=== PATIENT | female | born 1980 | race African-American/Black ===

== ENCOUNTER 2021-08-06 17:23 | Emergency (ER) | payer MEDICAID, OTHER ==
[~2021-08-06] VITALS: Ht 170.2 cm; Wt 119.0 kg
--- NOTE | 2021-08-06 18:17 | PHYS DOC ---
Past History Past Medical History: Diabetes General Adult EDM: Chief Complaint: HYPERGLYCEMIA HPI: HPI: ".. I ve been urinating constantly the last couple days... Mom check my blood sugar... with my dad' s machine.. and it read to high to read... we rechecked.. and it was to still to high to read... I never been diabetic before...." " I dont feel well..." Patient is a 40 year old female who presents with above hx and complaint of glucose levels to high to read. Pt denies previous episodes of hyperglycemia or diabetes. No recent travel. No specific ill contacts. Did get COVID vaccination but did not get flu vaccination. Father does have a diabetes and hypertension. Patient denies any recent change in dietary intake, states she has been too nauseated. Patient is accompanied by her mother. Review of Systems: Review of Systems: Constitutional: Denies fever or chills. Complains of generalized malaise Eyes: Denies change in visual acuity HENT: Denies nasal congestion or sore throat Respiratory: Denies cough or shortness of breath Cardiovascular: Denies chest pain or edema GI: Denies abdominal pain, nausea, vomiting, bloody stools or diarrhea : Complains of persistent need to urinate Musculoskeletal: Denies back pain or joint pain Integument: Denies rash Neurologic: Denies headache, focal weakness or sensory changes Endocrine: Complains of polyuria Lymphatic: Denies swollen glands Psychiatric: Denies depression or anxiety Family History: Family History: Diabetes hypertension-father Current Medications: Current Meds: See nursing for home meds Allergies: Allergies: No known drug allergies Physical Exam: PE: Constitutional: Moderate acute distress, non-toxic appearance. [] HENT: Normocephalic, atraumatic, bilateral external ears normal, oropharynx dry, no oral exudates, nose normal. [] Eyes: PERRLA, EOMI, conjunctiva normal, no discharge. [] Neck: Normal range of motion, no tenderness, supple, no stridor. [] Cardiovascular: Tachycardia heart rate regular rhythm, no murmur [] Lungs & Thorax: Bilateral breath sounds equal apex auscultation [] Abdomen: Bowel sounds normal, soft, no tenderness, no masses, no pulsatile masses. Morbidly obese Skin: Warm, dry, no erythema, no rash. [] Back: No tenderness, no CVA tenderness. [] Extremities: No tenderness, no cyanosis, no clubbing, ROM intact, ankle edema. [] No obvious cording. Neurologic: Alert and oriented X 3, normal motor function, normal sensory function, no focal deficits noted. [] Psychologic: Affect anxious, judgement normal, mood normal. [] EKG: EKG: My interpretation EKG shows a sinus rhythm at 99 bpm. No acute morphology. [] Radiology/Procedures: Radiology/Procedures: [] Heart Score: C/O Chest Pain: N/A HEART Score for Chest Pain: HEART Score for Chest Pain Response (Comments) Value History Slighlty/Non-Suspicious 0 ECG Normal 0 Age < 45 0 Risk Factors 1 or 2 Risk Factors 1 Troponin < Normal Limit 0 Total 1 Risk Factors: Risk Factors: DM, Current or recent (<one month) smoker, HTN, HLP, family history of CAD, obesity. Risk Scores: Score 0 - 3: 2.5% MACE over next 6 weeks - Discharge Home Score 4 - 6: 20.3% MACE over next 6 weeks - Admit for Clinical Observation Score 7 - 10: 72.7% MACE over next 6 weeks - Early Invasive Strategies Course & Med Decision Making: Course & Med Decision Making Pertinent Labs and Imaging studies reviewed. (See chart for details) No current ICU beds currently at [facility]. Discussed presentation and testing and treatment plan with Dr. Kenny-admit to his service at [facility] 90 min. Impression: 1. Diabetes-new onset 2. Critical hyperglycemia- 1, 617 glucose 3. Acute renal failure- Bun 22/Creat. 2.1 4. Dehydration 5. Hyponatremia- 128 6. Critical Hyperkalemia 7 7. Elevated alk phos 127 8. Elevated CK 212 9. Morbid Obesity [] Dragon Disclaimer: Dragon Disclaimer: This electronic medical record was generated, in whole or in part, using a voice recognition dictation system. Departure Departure: Referrals: PCP,UNKNOWN (PCP) Dragon Disclaimer This chart was dictated in whole or in part using Voice Recognition software in a busy, high-work load, and often noisy Emergency Department environment. It may contain unintended and wholly unrecognized errors or omissions. NICO LANGFORD MD Aug 06, 2021 18:17
[2021-08-06] MEDS ORDERED: IV NORMAL SALINE 1,000ML 1,000 ML IV SCH (18:30)
[2021-08-06] MEDS ORDERED: ONDANSETRON PF 4 MG/2 ML VIAL. IVP ONE (18:30)
[2021-08-06] MEDS ORDERED: INSULIN REGULAR VIAL 100 UNIT in IV NORMAL SALINE 100ML 100 ML IV PRN (18:45)
[2021-08-06] MEDS ORDERED: INSULIN REGULAR 100 UNIT/ML 3ML VIAL. IV ONE (18:45)
[2021-08-06 18:58] LABS: BASO # 0.1 x10^3/uL (0.0-0.2); BASO % 1 % (0-3); EOS % 0 % (0-3); HEMATOCRIT 50.4 % (36.0-47.0); HEMOGLOBIN 15.6 g/dL (12.0-15.5); LYMPH # 0.5 x10^3/uL (1.0-4.8); LYMPH % 5 % (24-48); MEAN CORPUSCULAR HEMOGLOBIN 28 pg (25-35); MEAN CORPUSCULAR HGB CONC 31 g/dL (31-37); MEAN CORPUSCULAR VOLUME 90 fL (79-100); MONO # 0.4 x10^3/uL (0.0-1.1); MONO % 4 % (0-9); NEUT # 9.6 x10^3uL (1.8-7.7); NEUT % 91 % (31-73); PLATELET COUNT 228 x10^3/uL (140-400); RED BLOOD COUNT 5.62 x10^6/uL (3.50-5.40); RED CELL DISTRIBUTION WIDTH 13.8 % (11.5-14.5); WHITE BLOOD COUNT 10.6 x10^3/uL (4.0-11.0)
[2021-08-06 18:59] LABS: BARBITURATES NEG (NEG); BENZODIAZEPINES NEG (NEG); CANNABINOIDS NEG (NEG); COCAINE NEG (NEG); METHADONE NEG (NEG); OPIATES NEG (NEG); PHENCYCLIDINE NEG (NEG)
[2021-08-06 19:01] LABS: AMPHETAMINE/METHAMPHETAMINE NEG (NEG)
[2021-08-06 19:12] LABS: ALBUMIN 4.6 g/dL (3.4-5.0); CALCIUM 10.3 mg/dL (8.5-10.1); CREATININE 2.1 mg/dL (0.6-1.0); DIRECT BILIRUBIN 0.3 mg/dL (0.0-0.2); GFR 31.4; TOTAL BILIRUBIN 1.7 mg/dL (0.2-1.0); TOTAL PROTEIN 8.8 g/dL (6.4-8.2)
[2021-08-06 19:13] LABS: BACTERIA,URINE 0 /HPF (0-FEW); CLARITY,URINE CLEAR; COLOR,URINE STRAW; GLUCOSE,URINE >=1000 mg/dL (NEG); NITRITE,URINE NEG (NEG); RBC,URINE 0 /HPF (0-2); SQUAMOUS EPITHELIAL CELL,UR OCC /LPF; UROBILINOGEN,URINE 0.2 mg/dL (0.2 mg/dL); WBC,URINE 0 /HPF (0-4)
[2021-08-06] MEDS ORDERED: ALBUTEROL SULFATE 8GM INHALER. INH ONE (19:45)
[2021-08-06] MEDS ORDERED: SODIUM POLYSTYRENE SULFONATE 15 GM/60 ML ORAL.SUSP. PO ONE (19:45)
[2021-08-06] MEDS ORDERED: CALCIUM CHLORIDE 1,000 MG/10 ML DISP.SYRIN IV ONE (19:45)
[2021-08-06] MEDS ORDERED: SODIUM BICARB ADULT 8.4% 50 MEQ/50 ML DISP.SYRIN. IV ONE (19:45)
[2021-08-06 20:34] VITALS: BP 130/78
[2021-08-06 21:18] LABS: INFLUENZA A PATIENT NEGATIVE (NEGATIVE); INFLUENZA B PATIENT NEGATIVE (NEGATIVE)
--- NOTE | 2021-08-07 06:40 | EKG ---
[address] [address] Test Date: 2021-08-06 Test Time: 19:41:03 Pat Name: FRANKO GALINDO Department: Room: Gender: F Radio Producer: YANIRA : 1980 Requested By: NICO LANGFORD Order Number: [id number] Reading MD: Gume Marshall Measurements Intervals [place] Rate: 99 P: 22 [place]: 136 QRS: 31 QRSD: 80 T: 13 QT: 356 QTc: 462 Interpretive Statements SINUS RHYTHM NORMAL ECG RI6.02 No previous ECG available for comparison Electronically Signed On 08-09-2021 13:38:09 CDT by Gume Marshall
[2021-08-07 19:48] LABS: CHOLESTEROL/HDL RATIO 5.8
== END 2021-08-06 21:32 | disposition short-term general hospital (02) ==
LOC: ER 17:23
DX: N17.9 Acute kidney failure, unspecified (principal); E11.65 Type 2 diabetes mellitus with hyperglycemia; E86.0 Dehydration; E87.1 Hypo-osmolality and hyponatremia; E87.5 Hyperkalemia; R79.89 Other specified abnormal findings of blood chemistry; E66.01 Morbid (severe) obesity due to excess calories; Z20.822 Contact with and (suspected) exposure to COVID-19; Z68.41 Body mass index [BMI] 40.0-44.9, adult
CPT/HCPCS: 36415; 80048; 80061; 80076; 80307; 81001; 81025; 82550; 82803; 83690; 84484; 85025; 85610; 85730; 87428; 93005; 96361; 96365; 96375; 96376; 99291; 99292; C9803; J1815; J2405; J7030; U0003

== ENCOUNTER 2021-08-16 22:22 | Emergency (ER) | payer OTHER ==
[~2021-08-16] VITALS: Ht 170.2 cm; Wt 119.0 kg
--- NOTE | 2021-08-16 22:29 | PHYS DOC ---
Past History Past Medical History: Diabetes Past Surgical History: No Surgical History Alcohol Use: None General Adult HPI: HPI: "..I having some back pain toniht. " " I ve been doing pretty good with my glucose control.. " Patient is a 40 year old female who presents with lumbar discomfort and back spasms. Pt. denies any travel. No hx of trauma. Pt. Did have a episodes of hyperglycemina and renal failure on 08/06. pt. has been compliant with new medication regimen. Patient was seen on 08/06 for hyperglycemic with sugars in over 600, dehydration and acute renal failure.. Pt. state most of glucose levels now are less than 200's . Pt. did get COVID vaccination. Did not get flu vaccination this season. No recent travel. No hx of trauma. Pt. working with a primary to get her new onset DM under better control. No history of IV drug use. No history of cancer. No history of immunosuppression. Review of Systems: Review of Systems: Constitutional: Denies fever or chills Eyes: Denies change in visual acuity HENT: Denies nasal congestion or sore throat Respiratory: Denies cough or shortness of breath Cardiovascular: Denies chest pain or edema GI: Denies abdominal pain, nausea, vomiting, bloody stools or diarrhea : Denies dysuria Musculoskeletal: Complains of musculoskeletal back pain Integument: Denies rash Neurologic: Denies headache, focal weakness or sensory changes Endocrine: Denies polyuria or polydipsia Lymphatic: Denies swollen glands Psychiatric: Denies depression or anxiety Family History: Family History: Diabetes Current Medications: Current Meds: See nursing for home meds Allergies: Allergies: Allergies Coded Allergies Type Severity Reaction Last Updated Verified No Known Drug Allergies 08/06/21 No Physical Exam: PE: Constitutional: moderate acute distress, non-toxic appearance. [] HENT: Normocephalic, atraumatic, bilateral external ears normal, oropharynx moist, no oral exudates, nose normal. [] Eyes: PERRLA, EOMI, conjunctiva normal, no discharge. [] Neck: Normal range of motion, no tenderness, supple, no stridor. [] Cardiovascular:Heart rate regular rhythm, no murmur [] Lungs & Thorax: Bilateral breath sounds clear to auscultation [] Abdomen: Bowel sounds normal, soft, no tenderness, no masses, no pulsatile masses. Obese. Skin: Warm, dry, no erythema, no rash. [] Back: Lumbar sacral muscle tenderness, no midline tenderness, no CVA tenderness. Some paralumbar muscle spasms appreciated. Extremities: No tenderness, no cyanosis, no clubbing, ROM intact, no edema. [] Neurologic: Alert and oriented X 3, normal motor function, normal sensory function, no focal deficits noted. [] Psychologic: Affect anxious, judgement normal, mood normal. [] EKG: EKG: [] Radiology/Procedures: Radiology/Procedures: [][address] [address] IMAGING REPORT Signed PATIENT: FRANKO GALINDO MACCOUNT: [id number] : 1980 LOCATION: ER AGE: 40 SEX: F EXAM STATUS: REG ER ORD. PHYSICIAN: NICO LANGFORD MD REASON: pain PROCEDURE: ACUTE ABDOMEN SERIES PA chest AP upright and supine abdomen x-rays HISTORY: Abdominal pain. FINDINGS: Cardiac and mediastinal silhouette are normal. No pulmonary opacities or pleural effusions. No pneumoperitoneum. Pelvic phleboliths. Bowel gas and stool in the large bowel. No dilated bowel loops or abnormal air-fluid levels. Bones and soft tissues are unremarkable. IMPRESSION: No acute process in the chest. No bowel obstruction. Electronically signed by: Halie Clay MD (08/17/2021 1:25 AM) [facility] [place] DICTATED AND SIGNED BY: HALIE CLAY MD DATE: 08/17/21123 CC: NICO LANGFORD MD; PCP,UNKNOWN ~ Heart Score: C/O Chest Pain: N/A HEART Score for Chest Pain: HEART Score for Chest Pain Response (Comments) Value History Slighlty/Non-Suspicious 0 ECG Normal 0 Age < 45 0 Risk Factors No Risk Factors 0 Troponin < Normal Limit 0 Total 0 Risk Factors: Risk Factors: DM, Current or recent (<one month) smoker, HTN, HLP, family history of CAD, obesity. Risk Scores: Score 0 - 3: 2.5% MACE over next 6 weeks - Discharge Home Score 4 - 6: 20.3% MACE over next 6 weeks - Admit for Clinical Observation Score 7 - 10: 72.7% MACE over next 6 weeks - Early Invasive Strategies Course & Med Decision Making: Course & Med Decision Making Pertinent Labs and Imaging studies reviewed. (See chart for details) Pt. continue efforts to control glucose levels with insulin and diet. Pt. use ice packs as needed. Fluids. Control glucose levels. Fine primary care. Tylenol and ibuprofen for discomfort. Marked muscle spasm may take Flexeril 10 mg up 3 times a day. Follow-up primary care. Return if any concerns. Impression: 1. New Diabetic Dx. 2. Hx of Hyperglycemia 3. Hx. of Acute Renal Failure 4. Morbid Obesity. 5. Lumbar sacral muscle spasms [] Dragon Disclaimer: Dragon Disclaimer: This electronic medical record was generated, in whole or in part, using a voice recognition dictation system. Departure Departure: Referrals: PCP,UNKNOWN (PCP) Dustin Disclaimer This chart was dictated in whole or in part using Voice Recognition software in a busy, high-work load, and often noisy Emergency Department environment. It may contain unintended and wholly unrecognized errors or omissions. NICO LANGFORD MD Aug 16, 2021 22:29
[2021-08-16 22:37] VITALS: BP 125/75
[2021-08-16 23:34] LABS: BARBITURATES NEG (NEG); BENZODIAZEPINES NEG (NEG); CANNABINOIDS NEG (NEG); COCAINE NEG (NEG); METHADONE NEG (NEG); OPIATES NEG (NEG); PHENCYCLIDINE NEG (NEG)
[2021-08-16 23:35] LABS: AMPHETAMINE/METHAMPHETAMINE NEG (NEG)
[2021-08-16 23:45] LABS: BACTERIA,URINE FEW /HPF (0-FEW); CLARITY,URINE CLEAR; COLOR,URINE YELLOW; GLUCOSE,URINE 500 mg/dL (NEG); NITRITE,URINE NEG (NEG); SQUAMOUS EPITHELIAL CELL,UR FEW /LPF; UROBILINOGEN,URINE 0.2 mg/dL (0.2 mg/dL)
[2021-08-17] MEDS: ORPHENADRINE CITRATE 60 MG/2 ML VIAL. IM ONE (00:09)
[2021-08-17] MEDS: KETOROLAC 60 MG/2 ML VIAL. IM ONE (00:19)
--- NOTE | 2021-08-17 01:28 | RAD ---
PA chest AP upright and supine abdomen x-rays HISTORY: Abdominal pain. FINDINGS: Cardiac and mediastinal silhouette are normal. No pulmonary opacities or pleural effusions. No pneumoperitoneum. Pelvic phleboliths. Bowel gas and stool in the large bowel. No dilated bowel lo ops or abnormal air-fluid levels. Bones and soft tissues are unremarkable. IMPRESSION: No acute process in the chest. No bowel obstruction. Electronically signed by: Ben Clay MD (08/17/2021 1:25 AM) [facility]
== END 2021-08-17 02:19 | disposition home or self-care (01) ==
LOC: ER 22:22
DX: M62.830 Muscle spasm of back (principal); E11.65 Type 2 diabetes mellitus with hyperglycemia; E66.01 Morbid (severe) obesity due to excess calories; Z68.41 Body mass index [BMI] 40.0-44.9, adult
CPT/HCPCS: 36415; 74022; 80307; 81001; 81025; 82947; 96372; 99284; J1885; J2360